=== PATIENT | male | born 1985 | race African-American/Black ===

== ENCOUNTER 2020-02-17 22:36 | Emergency (ER) | payer OTHER ==
[~2020-02-17] VITALS: Ht 185.4 cm; Wt 104.3 kg
--- NOTE | 2020-02-17 22:47 | Emergency Room Report ---
History of Present Illness General Chief Complaint: Lower Extremity Injury Source: Patient Present Illness HPI Patient is a 35-year-old male who presents after increased left knee pain. Reports having jumped after off of a porch and subsequently felt a pop in his knee. Has been having difficulty with ambulation since then. Increased pain. Denies any numbness. Prior history of right lower extremity prosthesis. Patient states that he had been taking Abilify denies any other medications. Injury per occurred short time prior to arrival. Pain was 10 of 10. 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: No Patient History Reviewed Nursing Documentation: PMH: Agreed; PSxH: Agreed Review of Systems All Other Systems: negative except mentioned in HPI Physical Exam Vital Signs Date Time Temp Pulse Resp B/P (MAP) Pulse Ox O2 Delivery O2 Flow Rate FiO2 02/17/20 22:38 98.1 100 20 144/80 (101) 100 Room Air Sp02 EP Interpretation: reviewed, normal General Appearance: normal inspection, well appearing, no apparent distress, alert, GCS 15 Head: atraumatic ENT: normal ENT inspection, hearing grossly normal, normal voice Neck: normal inspection, full range of motion, supple, no bony tend Respiratory: normal inspection, lungs clear, normal breath sounds, no respiratory distress, no retraction, no wheezing Cardiovascular #1: regular rate, rhythm, no edema Gastrointestinal: normal inspection, normal bowel sounds, non tender, soft, no guarding, no hernia Genitourinary: no CVA tenderness Musculoskeletal: normal inspection, back normal, normal range of motion Neurologic: alert, motor strength/tone normal, pipeline engineer III-XII nml as tested, oriented x3, responsive, speech normal, normal inspection Psychiatric: normal inspection, judgement/insight normal, mood/affect normal Medical Decision Making Diagnostic Impression: Primary Impression: Patellar fracture Additional Impression: Patellar dislocation ER Course Presented for left-sided knee pain. Differential diagnosis include was not limited to fracture, dislocation, contusion among others. Because of complexity of patient's case laboratory tests and imaging studies were ordered. Patient was noted to have stable anterior drawer as well as medial lateral stress test. Patella was noted be dislocated superiorly. Patient is given pain medications and placed in a knee immobilizer. Ice was applied. Patient was given crutches. Patient was able to ambulate with crutches.He was advised to follow-up with his primary care physician for orthopedic referral. The patient is advised to follow up as soon as possible. Patient is advised to return if any worsening condition or if any changes in status that are concerning. This report is dictated with [employer] controller software which may occasionall y lead to discrepancies related to use of this software. Last Vital Signs Date Time Temp Pulse Resp B/P (MAP) Pulse Ox O2 Delivery O2 Flow Rate FiO2 02/17/20 22:38 98.1 100 20 144/80 (101) 100 Room Air Status: improved Disposition: HOME, SELF-CARE Condition: Stable Scripts Ibuprofen* (MOTRIN*) 600 Mg Tablet 600 MG ORAL Q8H PRN for FOR PAIN, #30 TAB 0 Refills Prov: Mart Oconnell MD 02/17/20 Hydrocodone Bit/Acetaminophen 5-325* (NORCO 5-325 TABLET*) 1 Each Tablet 1 TAB ORAL Q6H PRN for FOR PAIN, #12 TAB 0 Refills Prov: Mart Oconnell MD 02/17/20 aMrt Oconnell MD Feb 17, 2020 22:47
--- NOTE | 2020-02-17 22:58 | Diagnostic Imaging Report ---
EXAM: XR Left Knee, 3 Views CLINICAL HISTORY: PAIN TECHNIQUE: Three views of the left knee. COMPARISON: None available. FINDINGS: Bones/joints: There is an elevated positioning of the patella. Cortical irregularity of the inferior aspect of the patella is noted. Chronic appearing fragmented ossicles are noted at the tibial tuberosity as well as the proximal patellar tendon region. No acute fracture. No dislocation. Soft tissues: Soft tissues are otherwise unremarkable. IMPRESSION: 1. Findings suggestive of proximal patellar tendon injury with proximal positioning of the patella. 2. 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
[2020-02-17] MEDS ORDERED: HYDROcodone/Acetamin 5/325 tab ORAL ONE (23:00)
[2020-02-17] MEDS ORDERED: Ketorolac 60mg Inj IM ONE (23:00)
[2020-02-17] MEDS ORDERED: IBUPROFEN600 M1 ORAL (23:43)
[2020-02-17] MEDS ORDERED: NORCO 5-325 TA1 EAC1 ORAL (23:43)
[2020-02-17 23:50] VITALS: BP 144/80
== END 2020-02-17 23:50 | disposition home or self-care (01) ==
LOC: EDBD 22:36 → EMR 22:49
DX: S82.002A Unspecified fracture of left patella, initial encounter for closed fracture (principal); S83.095A Other dislocation of left patella, initial encounter; Y93.39 Activity, other involving climbing, rappelling and jumping off; Y92.89 Other specified places as the place of occurrence of the external cause
CPT/HCPCS: 73562; 96372; Z7502; 99283